=== PATIENT | male | born 1965 | race Caucasian/White ===

== ENCOUNTER 2022-05-23 08:20 | Outpatient (CLI) | payer OTHER, SELFPAY ==
--- NOTE | 2022-05-23 10:47 | PFTS_ITS ---
Date of Study:05/23/22 Date of Dictation: MECHANICS: Forced vital capacity (FVC) is reduced. Forced expiratory volume in one second (FEV1) is reduced. FEV1/FVC is reduced. FLOW VOLUME LOOP: Reduced lateral lung volumes with scooping. LUNG VOLUMES: Not measured DIFFUSING CAPACITY FOR CARBON MONOXIDE: Not measured. INTERPRETATION: The postbronchodilator spirometry is consistent with moderate airflow obstruction. There is no significant postbronchodilator response. A component of restrictive lung disease cannot be ruled out in the absence of lung volume measurement. MTDD
== END 2022-05-23 08:21 | disposition home or self-care (01) ==
PROVIDERS: PCP Family Medicine; Visit Provider Emergency Medicine
DX: R91.8 Other nonspecific abnormal finding of lung field (principal)
CPT/HCPCS: 94060; J7614

== ENCOUNTER 2024-10-13 14:50 | Outpatient (CLI) | payer OTHER, MEDICAID, SELFPAY ==
--- NOTE | 2024-10-13 14:56 | MRR_ITS ---
PROCEDURE INFORMATION: Exam: MR Lumbar Spine Without Contrast Exam date and time: 10/13/2024 3:28 PM Age: 58 years old Clinical indication: Low back pain; Prior surgery; Surgery date: 6+ months; Patient HX: HX of lumbar fusion in 2021 at [facility] has had severe back pain since; Additional info: Radiculopathy, lumbosacral region TECHNIQUE: Imaging protocol: Magnetic resonance imaging of the lumbar spine without contrast. COMPARISON: No relevant prior studies available. FINDINGS: Bones/joints: Grade 1 anterolisthesis of L5 on S1. Diffuse bone marrow edema involving the L5 vertebra and superior endplate of L1. There is posterolateral fusion hardware bilaterally from 0 4 through S1 Spinal epidural space: Diffuse lumbar epidural lipomatosis. There is edema in the epidural fat anteriorly at L5-S1. No epidural fluid collection. Spinal cord: The visible portion of the spinal cord is normal. T12-L1: Normal. L1-L2: Normal. L2-L3: Normal disc. Mild left facet spondylosis. Mild spinal canal stenosis due to posterior epidural lipomatosis. No neural foraminal stenosis. L3-L4: Disc desiccation and narrowing. Mild generalized disc bulge. No focal disc herniation. Moderate facet spondylosis. Moderate spinal canal stenosis due primarily to epidural lipomatosis. Mild bilateral neural foraminal stenosis. L4-L5: Mild generalized disc bulge. Facet joints are obscured. Spinal canal is partially obscured. Moderate spinal stenosis due predominantly to epidural lipomatosis. Mild bilateral neural foraminal stenosis. L5-S1: The there is edema and trace fluid in the L5-S1 disc. Mild generalized disc bulge and small central disc protrusion. Grade 1 anterolisthesis of L5 on S1. Facet joints are obscured. Marked spinal stenosis with complete effacement of the thecal sac due to epidural lipomatosis. Moderate to severe bilateral neural foraminal stenosis. Soft tissues: Posterior lower lumbar skin incision with scarring and minimal micrometallic artifact. No fluid collection. Anterior paraspinal edema at L5-S1. Lower paraspinous muscle atrophy bilaterally. Visible intra-abdominal soft tissues are unremarkable. MR/MR lumbar spine wo con* [id number] IMPRESSION: 1. Edema at L5-S1 involving vertebra, intervertebral disc, anterior and posterior paraspinous soft tissues. No endplate erosion is visible. No acute fracture is visible. Findings may be degenerative, posttraumatic, or infectious (discitis and osteomyelitis). There is no visible abscess. 2. Intact posterolateral fusion from L4 through S1 with grade 1 anterolisthesis of L5 on S1. 3. Severe lumbar epidural lipomatosis contributing to spinal stenosis from L2-L3 through L5-S1. Details above.
== END 2024-10-13 14:51 | disposition home or self-care (01) ==
LOC: RAD 14:52
PROVIDERS: PCP Family Medicine; Visit Provider Student in an Organized Health Care Education/Training Program
DX: M54.17 Radiculopathy, lumbosacral region (principal); M43.16 Spondylolisthesis, lumbar region; D17.79 Benign lipomatous neoplasm of other sites; M47.896 Other spondylosis, lumbar region; M99.63 Osseous and subluxation stenosis of intervertebral foramina of lumbar region
CPT/HCPCS: 72148

== ENCOUNTER 2024-10-21 14:50 | Outpatient (CLI) | payer OTHER, MEDICAID, SELFPAY ==
[2024-10-21 16:02] LABS: Basophils # 0.1 10^3/uL (0.0-0.1); Basophils % 0.9 %; Eosinophils # 0.1 10^3/uL (0.0-0.8); Eosinophils % 1.5 %; Hematocrit 45.2 % (37-53); Lymphocytes # 1.5 10^3/uL (0.8-4.8); Lymphocytes % 19.1 %; Mean Corpuscular HGB Conc 33.8 g/dL (30-55); Mean Corpuscular Hemoglobin 31.3 pg (27-33); Mean Corpuscular Volume 92.4 fl (82-101); Mean Platelet Volume 9.4 fL (7.4-10.4); Monocytes # 0.8 10^3/uL (0.2-0.9); Neutrophils # 5.44 10^3/uL (1.8-7.7); Neutrophils % 67.6 %; Nucleated Red Blood Cells % 0 %; Platelet Count 231 10^3/cmm (157-399); Red Blood Count 4.89 10^6/uL (3.85-5.65); Red Cell Distribution Width 12.7 % (12.1-15.1); White Blood Count 8.03 10^3/uL (3.29-11.43)
[2024-10-21 16:09] LABS: Erythrocyte Sedimentation Rate 15 mm/hr (0-10)
== END 2024-10-21 14:51 | disposition home or self-care (01) ==
LOC: LAB 14:52
PROVIDERS: PCP Family Medicine; Visit Provider Student in an Organized Health Care Education/Training Program
DX: G89.4 Chronic pain syndrome (principal)
CPT/HCPCS: 36415; 85025; 85651

== ENCOUNTER 2025-10-11 09:25 | Outpatient (CLI) | payer MEDICARE, MEDICAID, SELFPAY ==
--- NOTE | 2025-10-11 09:40 | MR_ITS ---
WS: [id number] MRI THORACIC SPINE WITHOUT CONTRAST TECHNIQUE: Sagittal T1, T2 and STIR imaging. Axial T2 imaging. Noncontrast imaging obtained. CLINICAL INFORMATION: pre procedural exam COMPARISON: None. FINDINGS: Mild thoracic curve. No acute compression. No high-grade central canal stenosis. Cord signal is normal. Normal CSF pulsation artifact in the dorsal spinal canal. Small RIGHT paracentral protrusion T3-4 with slight contact of the thoracic cord. Tiny central protrusion T5-6. No significant central canal stenosis. Moderate facet arthropathy lower thoracic spine. Small RIGHT renal cyst. Normal RIGHT adrenal gland. Thickening LEFT adrenal gland. MR/MR thoracic spin wo con* [id number] IMPRESSION: 1. Mild thoracic curve. Mild thoracic kyphosis. 2. No significant central canal stenosis. 3. Small RIGHT paracentral protrusion with slight indentation on the thoracic cord at T3-4. Tiny central protrusion at T5-6. 4. Moderate facet arthropathy lower thoracic spine.
== END 2025-10-11 09:26 | disposition home or self-care (01) ==
LOC: RAD 09:27
PROVIDERS: PCP Family Medicine; Visit Provider Student in an Organized Health Care Education/Training Program
DX: Z01.818 Encounter for other preprocedural examination (principal); M40.204 Unspecified kyphosis, thoracic region; M40.04 Postural kyphosis, thoracic region; M51.04 Intervertebral disc disorders with myelopathy, thoracic region; M51.24 Other intervertebral disc displacement, thoracic region; M47.813 Spondylosis without myelopathy or radiculopathy, cervicothoracic region; N28.1 Cyst of kidney, acquired
CPT/HCPCS: 72146